=== PATIENT | male | born 1945 | race Caucasian/White ===

== ENCOUNTER 2016-12-28 08:30 | Inpatient (IN) ==
[2016-12-20 13:33] LABS: Basophils # (Auto) 0 K/mcL (0.0-0.3); Basophils % (Auto) 0.3 % (0.0-2.0); Eosinophils # (Auto) 0.2 K/mcL (0.0-0.7); Eosinophils % (Auto) 2.2 % (0.0-7.0); Granulocytes % (Auto) 70.8 % (38.0-78.0); Lymphocytes # (Auto) 1.4 K/mcL (1.5-4.8); Lymphocytes % (Auto) 18.7 % (15.5-49.0); Mean Cell Volume 88.2 fL (80.0-100.0); Mean Corpuscular HGB Conc 32.7 g/dL (31.0-36.0); Mean Corpuscular Hemoglobin 28.9 pg (26.0-34.0); Monocytes # (Auto) 0.6 K/mcL (0.1-0.9); Platelet Count 265 K/mcL (140-440); RBC 4.24 M/mcL (4.50-5.90); Red Cell Distribution Width 13.9 % (11.5-14.5)
[2016-12-20 13:33] LABS: Appearance,Urine CLEAR; Bilirubin,Urine NEG (NEG); Color,Urine YELLOW; Glucose,Urine (UA) NEGATIVE (NEG); Leukocyte Esterase,Urine NEG /uL (NEG); Nitrate,Urine NEG (NEG); Protein,Urine NEG (NEG); Specific Gravity,Urine 1.018 (1.000-1.035); Urine Blood NEG mg/dL (<0.03); Urobilinogen,Urine NEG (NEG)
[2016-12-20 13:45] LABS: Blood Urea Nitrogen 16 mg/dl (8-23)
[~2016-12-28 08:30] MED LIST: ACETAMINOPHEN 500 MG TABLET PO SCH; CELECOXIB 200 MG CAPSULE PO SCH; PREGABALIN 75 MG CAPSULE PO SCH; ceFAZolin 1 GM VIAL IV SCH; oxyCODONE 10 MG TAB.ER.12H PO SCH
[2016-12-28] MEDS ORDERED: KETOROLAC 30 MG, ROPIVACAINE HCL/PF 49.5 ML, EPINEPHrine 0.5 MG, 0.9 % SODIUM CHLORIDE ... IJ ONE (09:00)
[2016-12-28] MEDS ORDERED: GENTAMICIN SULFATE 800 MG/20 ML VIAL IR ONE (11:55)
[2016-12-28] MEDS ORDERED: GLYCOPYRROLATE 0.2 MG/ML VIAL IV ONE (12:30)
[2016-12-28] MEDS ORDERED: PROPOFOL 200 MG/20 ML VIAL IV ONE (12:30)
[2016-12-28] MEDS ORDERED: fentaNYL 250 MCG/5 ML VIAL IV ONE (12:30)
[2016-12-28] MEDS ORDERED: ONDANSETRON 4 MG/2 ML VIAL IV ONE (12:30)
[2016-12-28] MEDS ORDERED: MIDAZOLAM 5 MG/5 ML VIAL IV ONE (12:30)
[2016-12-28] MEDS ORDERED: ROPIVACAINE HCL/PF 30 ML VIAL IJ ONE (12:30)
[2016-12-28] MEDS ORDERED: LIDOCAINE HCL/PF 100 MG/5 ML SYRINGE IV ONE (12:30)
[2016-12-28] MEDS ORDERED: DEXAMETHASONE 10 MG/ML VIAL IV ONE (12:30)
[2016-12-28] MEDS ORDERED: ePHEDrine 50 MG/ML AMPUL IV ONE (12:30)
[2016-12-28] MEDS ORDERED: KETAMINE 100 MG/ML ML IV ONE (12:30)
[2016-12-28] MEDS ORDERED: TRANEXAMIC ACID 1,000 MG/10 ML VIAL IV ONE ×2 (12:30→14:02)
[2016-12-28] MEDS ORDERED: MEPERIDINE 25 MG/ML SYRINGE IV PRN (13:57)
[2016-12-28] MEDS ORDERED: BENZOCAINE/MENTHOL 1 LOZENGE PO PRN ×2 (13:57→14:02)
[2016-12-28] MEDS ORDERED: fentaNYL 100 MCG/2 ML VIAL IV PRN (13:57)
[2016-12-28] MEDS ORDERED: METOPROLOL TARTRATE 5 MG/5 ML VIAL IV PRN (13:57)
[2016-12-28] MEDS ORDERED: PROMETHAZINE 25 MG/ML VIAL IV PRN (13:57)
[2016-12-28] MEDS ORDERED: HYDROmorphone 2 MG/ML SYRINGE IV PRN (13:57)
[2016-12-28] MEDS ORDERED: METHOCARBAMOL 1,000 MG/10 ML VIAL IV PRN (13:57)
[2016-12-28] MEDS ORDERED: IPRATROPIUM/ALBUTEROL 3 ML AMPUL.NEB NEB PRN (13:57)
[2016-12-28] MEDS ORDERED: ePHEDrine 50 MG/ML AMPUL IV PRN (13:57)
[2016-12-28] MEDS ORDERED: LACTATED RINGERS 1,000 ML IV SCH (14:00)
[2016-12-28] MEDS ORDERED: POLYETHYLENE GLYCOL 3350 17 GM PACKET PO PRN (14:02)
[2016-12-28] MEDS ORDERED: FLEETS ADULT ENEMA PR PRN (14:02)
[2016-12-28] MEDS ORDERED: ACETAMINOPHEN 325 MG TABLET PO PRN (14:02)
[2016-12-28] MEDS ORDERED: BISACODYL 10 MG SUPP.RECT PR PRN (14:02)
[2016-12-28] MEDS ORDERED: MAGNESIUM HYDROXIDE 30 ML ORAL.SUSP PO PRN (14:02)
[2016-12-28] MEDS ORDERED: TEMAZEPAM 15 MG CAPSULE PO PRN (14:02)
[2016-12-28] MEDS ORDERED: SILDENAFIL CITRATE 25 MG PO PRN (14:07)
[2016-12-28] MEDS ORDERED: Betamethasone Dipropionate Cream TOPICAL PRN (14:07)
--- NOTE | 2016-12-28 14:09 | Brief Operative Note ---
Date of procedure: 12/28/16 Pre-op diagnosis: left knee severe djd Post-op diagnosis: same Procedure: left tka Grafts/Implants: Yes Anesthesia: GETA Complications: none Surgeon: Gaetano Muniz Peanut Grader: Enrike Martell Estimated blood loss (cc): 20 Tourniquet Time (Minutes): 45 Specimens Removed/Pathology: none sent Condition: stable Disposition: PACU
--- NOTE | 2016-12-28 14:29 | Operative Note ---
DATE OF OPERATION: 12/28/2016 PREOPERATIVE DIAGNOSIS: Left knee degenerative arthritis of all three compartments. POSTOPERATIVE DIAGNOSIS: Left knee degenerative arthritis of all three compartments. PROCEDURE: Left total knee arthroplasty using the [employer] robot. SURGEON: Gaetano Muniz MD. MONOMER RECOVERY OPERATOR: Enrike Martell PA-C. ANESTHESIA: General LMA. ESTIMATED BLOOD LOSS: About 20 mL. IMPLANTS: Size 7 femur, size 6 tibial baseplate with an 11 mm poly insert, a 39 mm patellar button. These were cemented components with a cruciate retained design. DESCRIPTION OF PROCEDURE: The patient was brought to the operating room and put to sleep with general LMA anesthesia. Once asleep, the patient had the left leg sterilely prepped and draped in the usual sterile fashion. Once done, we then confirmed the knee with a time out, x-rays and initials. All three confirmed the knee as the correct side. Once this was done, we exsanguinated the leg and inflated the tourniquet to 250 pounds of pressure. We made a midline incision, mid vastus approach and exposed the joint showing severe arthritis of the patellofemoral joint and even the medial and lateral joint lines. At this point we placed two pins above and below the knee and registered the knee, hip center of rotation. We placed two intra-articular pins, one on the femur, one on the tibia. We registered these points and registered 30 points on the femur, 30 points on the tibia and then balanced the knee, both at 15 degrees of flexion and 90 degrees. Once this was perfectly balanced and moved the implants to match the patient's anatomy and tracking of the patella, we then proceeded with bringing the robot in. We registered the robot. We then made our distal femoral cut and posterior chamfer. We then made our anterior chamfer, made our anterior and posterior cuts and removed the bony fragments. We then made our tibial cut after registering the tibia and the robot. At this point, we preserved the PCL, removed spurs posteriorly, removed the remnants of the meniscus, and then punched into place the tibial baseplate by setting the rotation with the robot. Once done, we then placed an 11 mm poly, tapped into place the femoral component and irrigated thoroughly. This had full range of motion, 0 degrees extension, 145 degrees of flexion, balanced with 1 degree of play within the knee. We irrigated thoroughly. We then prepared the patella. It measured a total thickness of 24 mm. This was cut to 13 mm and then placed a 39 mm patellar button. We irrigated thoroughly. This seemed to fit perfectly. We then cemented into place a size 6 tibial baseplate, size 7 femur. Excess cement was removed and an 11 mm poly insert and 39 mm component was placed. We irrigated thoroughly. We then deflated the tourniquet and repaired the mid vastus approach with a knotless suture for the capsule, oversewing with [id number] pattern in #1 Vicryl, closed the skin with 2-0 Vicryl and adhesive closure. We placed a sterile bandage without complication. RBH:[facility] Job ID: [id number] Doc ID: [id number] Gaetano Muniz MD
--- NOTE | 2016-12-28 15:22 | XRay Report ---
HISTORY: Reason for Exam:Post-Op Total Knee FINDINGS: There is a well positioned total knee prosthesis. No fracture is present and there are no abnormal soft tissue calcifications. A moderate amount of calcified plaque is present in the popliteal artery. IMPRESSION: Well-positioned left knee prosthesis Interpreted and Authenticated by: Harish Azul 12/28/16
[2016-12-28] MEDS: HYDROmorphone 2 MG/ML SYRINGE IV PRN ×2 (15:34→20:01)
[2016-12-28] MEDS: 0.45 % SODIUM CHLORIDE 1,000 ML IV SCH (15:35)
[2016-12-28] MEDS: HYDROcodone/APAP 10/325MG TABLET PO PRN (16:28)
[2016-12-28] MEDS: KETOROLAC 15 MG/ML VIAL IV SCH (16:29)
[2016-12-28] MEDS: ceFAZolin 1 GM VIAL IV SCH (20:25)
[2016-12-28] MEDS ORDERED: TAMSULOSIN 0.4 MG CAPSULE PO SCH (21:00)
[2016-12-28] MEDS ORDERED: FLUTICASONE PROPIONATE SPRAY.NAS NS SCH (21:00)
[2016-12-28] MEDS ORDERED: SIMVASTATIN 20 MG TABLET PO SCH (21:00)
[2016-12-28] MEDS ORDERED: SENNOSIDES 1 TABLET PO SCH (21:00)
[2016-12-28] MEDS: ONDANSETRON 4 MG/2 ML VIAL IV PRN (22:22)
[2016-12-28] MEDS: ASPIRIN 325 MG ENTERIC COATED TABLET PO SCH (22:24)
[2016-12-28] MEDS: DOCUSATE SODIUM 100 MG CAPSULE PO SCH (22:25)
[2016-12-28] MEDS: oxyCODONE 10 MG TAB.ER.12H PO SCH (22:25)
[2016-12-28] MEDS: 0.9 % SODIUM CHLORIDE 10 ML SYRINGE IV SCH (22:25)
[2016-12-29] MEDS: KETOROLAC 15 MG/ML VIAL IV SCH ×3 (00:20→13:26)
[2016-12-29] MEDS: 0.45 % SODIUM CHLORIDE 1,000 ML IV SCH ×2 (01:27→11:39)
[2016-12-29] MEDS: ceFAZolin 1 GM VIAL IV SCH (04:06)
[2016-12-29] MEDS: ONDANSETRON 4 MG/2 ML VIAL IV PRN ×3 (04:32→13:39)
[2016-12-29] MEDS: HYDROcodone/APAP 10/325MG TABLET PO PRN (04:40)
[2016-12-29] MEDS: 0.9 % SODIUM CHLORIDE 10 ML SYRINGE IV SCH ×2 (05:49→13:38)
[2016-12-29] MEDS ORDERED: MULTIVIT,THER IRON,CA,FA & MIN 1 TABLET PO SCH (09:00)
[2016-12-29] MEDS ORDERED: amLODIPine 10 MG TABLET PO SCH (09:00)
[2016-12-29] MEDS ORDERED: LOSARTAN 50 MG TABLET PO SCH (09:00)
[2016-12-29] MEDS: DOCUSATE SODIUM 100 MG CAPSULE PO SCH (09:24)
[2016-12-29] MEDS: ASPIRIN 325 MG ENTERIC COATED TABLET PO SCH (09:24)
[2016-12-29] MEDS: oxyCODONE 10 MG TAB.ER.12H PO SCH (09:24)
--- NOTE | 2016-12-29 10:16 | Discharge Summary ---
Ortho Discharge - TKA - Patient Instructions Diet: Regular Diet Activity: activity as tolerated, weight bearing as tolerated Total Knee Protocol: For Total Knee: Start ROM EDOUARD with stationary bike or rocking chair. Work on gaining full extension of knee. Posterior dislocation precautions provided. Hip abductor strengthening and gait training instructions provided. Apply Cryocuff as instructed. Dressing Care: Aquacel Ag - leave on for 5 days Patient Education: Total Knee Replacement (DC) Additional Instructions: Discharge Instructions: Do the exercises at home that physical therapy gave you. You are scheduled with [facility] on SaturdayDecember 31 @ 3:30pm Take your photo ID, insurance cards, and current medication list with you to your first physical therapy appointment. Take your prescription to [facility] any medication or equipment (such as walker, crutches, toilet riser or C.P.M.) Wear comfortable clothing for your physical therapy. Weight bearing as tolerated. If you have the Aquacel Ag dressing, leave in place for 7 days then remove. If dressing becomes soiled (turns black), remove and use gauze 4x4 dressing and silvasorb ointment and change daily. Keep incision clean and dry. If you have Dermabond (a dressing with a mesh-like appearance), leave open to air. You may start showering on post op day #2. The Dermabond dressing can get wet, do not scrub dressing. Pat dry. To avoid constipation while taking any narcotic pain medication, take an over the counter stool softener/laxative. Use your Cryocuff or ice packs as directed, on for 20 minutes at a time throughout the day. This and elevation will help with pain and swelling. Call your physician for fevers above 100.5 or pain not controlled by medication. Your prescriptions are with your discharge information. Some medications were electronically transmitted to your pharmacy of choice. - Follow Up Plan Follow Up Appointments: Gaetano Muniz MD [Physician] - 01/10/17 8:50 am Disposition: Home, Self-Care Prognosis: Good Rehab Potential: Good I certify that the patient requires SNF services: No Overall status at discharge: patient is progressing back to baseline - Orders For Discharge Prescriptions: Aspirin [Ecotrin] 325 mg PO BID #28 tab.ec HYDROcodone/APAP 10/325MG [[place] 10/325Mg] 1 - 2 tab PO Q4H PRN #60 tablet PRN Reason: Pain Ondansetron [Zofran] 4 mg PO Q4HP PRN #10 vial PRN Reason: Nausea And Vomiting Additional Discharge Orders: Physical Therapy at Discharge - TKA Location: Determined By Patient Toilet Riser Discharge Order Location: Determined By Patient Walker Location: Determined By Patient
== END 2016-12-29 14:10 | disposition home or self-care (01) | DRG 470 ==
LOC: MEDSUR 08:30
PROVIDERS: ADMIT Orthopaedic Surgery; ATTEND Orthopaedic Surgery

== ENCOUNTER 2020-07-20 16:59 | Inpatient (IN) ==
--- NOTE | 2020-07-20 17:14 | Emergency Department Note ---
Neuro HPI General Chief Complaint: Stroke Symptoms Stated Complaint: stroke symptoms, left sided weakness Time Seen by Provider: 07/20/20 17:09 Source: patient Mode of arrival: ambulatory Limitations: no limitations History of Present Illness HPI Narrative: Narrative: 75-year-old male returns to the ER after having TIA type symptoms at home. He had a 6 mm lacunar infarct diagnosed this morning on MRI stroke protocol but he had an NIH of 0 with an ABCD 2 score of 3 so he did not meet hospital criteria. He was already on a statin and aspirin- He took aspirin when he got home this afternoon. He was feeling better when he left [place] approximately 1630 he got up from his nap had a bowl of tapioca pudding and suddenly was not able to move his arm again and could not speak. This episode lasted about 10 minutes or so and by the time EMS got there it was resolving. At this time he again has no symptoms but EMS called me and I advised him to bring him in for reevaluation. At this time he is able to give me reasonable history and he remembers all the events. He did not fall or have any traumatic event. He is afebrile and denies any recent illness. He is having no trouble breathing. He has regained the use of all 4 of his appendages and is not complaining of any current deficit Related Data Home Medications Medication Instructions Recorded Confirmed amlodipine 10 mg PO DAILY 12/20/16 07/01/20 betamethasone dipropionate 1 applic TOPICAL DAILYP PRN 12/20/16 07/01/20 losartan 100 mg PO DAILY 12/20/16 07/01/20 sildenafil 25 mg PO PRN PRN 12/20/16 07/01/20 simvastatin 20 mg PO HS 12/20/16 07/01/20 tamsulosin 0.4 mg PO HS 12/20/16 07/01/20 Previous Rx's Medication Instructions Recorded omeprazole 20 mg capsule,delayed 20 mg PO QAM #30 cap 05/09/18 release cyclobenzaprine 10 mg tablet See Rx Instructions PO .COMPLEX 12/25/19 PRN #30 tab aspirin 325 mg PO QDAY #30 tab 07/20/20 Allergies Allergy/AdvReac Type Severity Reaction Status Date / Time No Known Drug Allergies Allergy Verified 07/20/20 17:01 Review of Systems ROS ROS Narrative: Narrative: All systems ED: reviewed and negative except as stated. [facility] Narrative Patient History Narrative: Narrative: Medical/Surgical/Family History All Active Problems (Updated 07/20/20 @ 17:14 by Eamon Villareal MD) Acute lacunar infarction (Acute) Hematuria (Acute) TMJ (sprain of temporomandibular joint) (Acute) Olecranon bursitis of left elbow (Acute) Chronic back pain (Acute) Neck pain (Acute) Cellulitis of foot, right (Acute) LAP-BAND surgery status (Acute) Hyperlipidemia (Acute) Hypertension (Acute) Hiccups (Acute) Medical History Hematuria (Acute) Olecranon bursitis of left elbow (Acute) TMJ (sprain of temporomandibular joint) (Acute) Social History Smoking Status: Never smoker Alcohol Intake Frequency: a few times a month Substance Use: does not use Exam Narrative Narrative: Narrative: I did a quick neuro exam as he was being admitted almost immediately after he was put in bed. His blood pressure is elevated at 189Systolic. He is normocephalic atraumatic. Conjunctive are clear sclerae white nonicteric. Nasal discharge or congestion. Oropharynx pink and moist. Neck is supple without lymphadenopathy thyromegaly or carotid bruit. Heart is regular rate and rhythm no murmur appreciated. Lungs clear to auscultation bilaterally without wheezes rales rhonchi or respiratory distress. Abdomen is soft nontender nondistended. No peritoneal signs or guarding. No pedal edema. +2 radial pulse. He is alert oriented able to answer questions appropriately.He is at baseline mentation and is a reasonable historian. I do not see any focal deficits. Face is symmetrical tongue is midline cranial nerves II through XII are grossly intact. Bilateral hand neurosurgery spine physician strength are normal. Shoulder strength is normal bilateral as well as hip. He can lift his great toes bilaterally normally and I do not see any ataxia dysarthria or tremor General Limitations: no limitations Course Vital Signs Vital signs: Vital Signs Pulse Rate 88 07/20/20 17:05 Respiratory Rate 22 07/20/20 17:05 Blood Pressure 189/109 07/20/20 17:05 Pulse Oximetry (%) 99 07/20/20 17:05 Pulse Rate 83 07/20/20 17:46 Respiratory Rate 16 07/20/20 17:46 Blood Pressure 140/82 07/20/20 17:46 Pulse Oximetry (%) 96 07/20/20 17:46 MDM MDM Narrative Medical decision making narrative: Narrative:So return to the ER for another TIA- Concern for worsening stroke. Sent back to the CT scanner. We will get telestroke involved and likely send him north to [place] for further care and monitoring CT scan of the head was negative for new stroke- Again. I discussed the findings with Dr. Danielson, Telestroke provider from [place]. He advised me That this was a fluctuating CVAAnd that these were difficult to treat. He recommended to do dual antiplatelet therapy With aspirin and Plavix and continue Statin. Advised me to not treat the blood pressure unless it got over 220 system- Permissive hypertension. The regimen he recommends for dual antiplatelet therapy is 150 mg of Plavix today and then go to 75 mg a day for the next 2 weeks. And then reevaluate. Need echocardiogram. Repeating EKG to make sure he is not in atrial fibrillation. He is not diabetic I did discuss the situation with Dr. Hunt, Our hospitalist. He agreed to accept the patient for further care and evaluation in the hospital. Some labs were still pending at the time of admission Lab Data Result diagrams: 07/20/20 17:30 07/20/20 17:30 Labs: Lab Results 07/20/20 07/20/20 07/20/20 Range/Units 17:30 17:30 17:30 WBC 7.9 (4.5-11.0) K/mcL RBC 4.50 (4.50-5.90) M/mcL Hgb 12.9 L (13.5-16.5) g/dL Hct 40.7 L (41.0-55.0) % MCV 90.4 (80.0-100.0) fL MCH 28.7 (26.0-34.0) pg MCHC 31.7 (31.0-36.0) g/dL RDW 14.4 (11.5-14.5) % Plt Count 247 (140-440) K/mcL MPV 10.8 H (7.4-10.4) fL Neut % (Auto) 74.6 (38.0-78.0) % Lymph % (Auto) 15.9 (15.0-49.0) % [place] % (Auto) 8.2 (1.0-12.0) % Eos % (Auto) 0.9 (0.0-7.0) % Baso % (Auto) 0.4 (0.0-2.0) % Lymph # (Auto) 1.25 L (1.50-4.80) K/mcL [place] # (Auto) 0.65 (0.10-0.90) K/mcL Eos # (Auto) 0.07 (0.00-0.70) K/mcL Baso # (Auto) 0.03 (0.00-0.20) K/mcL Absolute Neutrophils 5.88 (1.80-8.00) K/mcL POC PT 13.3 (11.9-14.5) sec POC INR 1.1 (0.8-1.2) POC Creatinine 1.1 (0.6-1.2) mg/dL Discharge Plan Patient/Caregiver Discharge Instructions Pt seen by MANAGER [facility]/PA only: No Clinical Impression: Acute lacunar infarction Patient Disposition: Xfer As Inpt ([facility]) Condition: Fair Follow up with: David Ruiz MD [Primary Care Provider] - Prescriptions: No Action omeprazole 20 mg capsule,delayed release(DR/EC) 20 mg PO QAM Qty: 30 RF: 0 cyclobenzaprine 10 mg tablet See Rx Instructions PO .COMPLEX PRN (Reason: muscle spasm) Qty: 30 RF: 0 losartan 50 MG tablet 100 mg PO DAILY RF: 0 sildenafil 25 MG tablet 25 mg PO PRN PRN (Reason: E.D.) RF: 0 tamsulosin 0.4 MG capsule 0.4 mg PO HS RF: 0 amlodipine 10 MG tablet 10 mg PO DAILY RF: 0 simvastatin 20 MG tablet 20 mg PO HS RF: 0 betamethasone dipropionate 15 GM cream 1 applic TOPICAL DAILYP PRN (Reason: Rash) RF: 0 aspirin 325 mg tablet 325 mg PO QDAY Qty: 30 RF: 0
[2020-07-20] MEDS ORDERED: niCARdipine 25 MG in 0.9 % SODIUM CHLORIDE 240 ML IV SCH (17:15)
--- NOTE | 2020-07-20 17:18 | Cat Scan Report ---
CLINICAL INFORMATION: COMPARISON: None. TECHNIQUE: 2.5 mm helical slices were obtained in the skull base to vertex. Following reconstruction, axial reformatted images were reviewed at bone and parenchymal windows. The exam was performed using radiation dose optimization techniques including, but not limited to, automated exposure control, adjustment of the mA and/or kV according to patient size and use of iterative reconstruction technique. FINDINGS: The ventricles, sulci, fissures, and cisterns are symmetrically enlarged compatible with mild age-related atrophy. No extra-axial fluid collections are identified. Mild chronic ischemic changes in the cerebral white matter are typical for age. A 5 mm remote lacunar infarct in the right joao appreciated. There is no evidence of hemorrhage, mass effect, or edema. Bone windows show no osseous abnormality. IMPRESSION: Mild atrophy with chronic ischemic changes in the cerebral white matter - expected for age. 5 mm remote lacunar infarct right joao No intracerebral hemorrhage, edema or other acute finding. No change from exam earlier today . Interpreted and Authenticated by: Navjot Mullen 07/20/20
[2020-07-20 17:34] LABS: POC Creatinine 1.1 mg/dL (0.6-1.2); POC INR 1.1 (0.8-1.2); POC Pro Time 13.3 sec (11.9-14.5)
[2020-07-20] MEDS ORDERED: CLOPIDOGREL 75 MG TABLET PO ONE ×2 (17:36→17:37)
[2020-07-20] MEDS ORDERED: 0.9 % SODIUM CHLORIDE 1,000 ML IV SCH ×2 (17:45→18:54)
--- NOTE | 2020-07-20 17:57 | Internal Med History&Physical ---
HPI History of Present Illness Patient information: Note initiated : 07/20/20 at 5:50 pm Service Date, if different from initiated Date: [] Patient: Lamont Murguia a 75 y/o M admitted on for stroke symptoms, left sided weakness. Chief Complaint: [] History of present illness: Mr. Murguia is a 75 year old M Presents the ED after strokelike symptoms. Patient first had symptoms this morning when he was getting ready for work he had had taken a shower had breakfast and was sitting down to put on his shoe and was not able. He reported weakness in his left leg and left hand arm he also had some numbness. Symptoms resolved by the time EMS arrived. He went to the ED and had a work-up which included MRI which revealed a 6 mm ischemic lacunar infarct in the posterior limb of the right internal capsule there is a remote 5 mm lacunar infarct in the right joao noted in a 3 mm remote infarct in the right cerebellar vermis. The symptoms had resolved patient was doing well in the ED and had a CTA which was unremarkable patient was prescribed aspirin he was already on a statin and set up for an outpatient echo. Patient went home and was doing well took the full dose aspirin as prescribed took a nap and woke up and when he was out moving around he eventually went and sat down on the couch and tried to use the remote to turn on [employer] when he noticed his left hand would not work very well noticed weakness in the leg he had some numbness as well and he noticed slurring. Symptoms essentially resolved by the time EMS arrived. In the ED he was reevaluated had a repeat CT brain showed no changes. He had a NIH score of 0 in the ED. neurologist from [place] Dr. Danielson was called and he recommended dual antiplatelet therapy for this fluctuating stroke. Allow permissive hypertension and obtain the complete work-up including echocardiogr am. She denies having any strokes in the past that he is aware of. Denies any recent illnesses. No pains or complaints. No headache. Review of Systems: Pertinent positives as above. Denies head ache/fever/chills/nausea/vomiting/chest or abdominal pain/cough/dyspnea/diarrhea. Remaining 10 point review of systems unremarkable PFSH PFSH All Active Problems (Updated 07/20/20 @ 17:14 by Eamon Villareal MD) Acute lacunar infarction (Acute) Hematuria (Acute) TMJ (sprain of temporomandibular joint) (Acute) Olecranon bursitis of left elbow (Acute) Chronic back pain (Acute) Neck pain (Acute) Cellulitis of foot, right (Acute) LAP-BAND surgery status (Acute) Hyperlipidemia (Acute) Hypertension (Acute) Hiccups (Acute) Medical History Hematuria (Acute) Olecranon bursitis of left elbow (Acute) TMJ (sprain of temporomandibular joint) (Acute) Social History (Updated 07/20/20 @ 17:54 by Peterson Hunt DO) smoking status: Never smoker alcohol intake frequency: a few times a month substance use type: does not use additional history: Past surgical history includes tonsillectomy bilateral knee surgeries hernia repair Family history mother is healthy at 96 and father at 62 of a brain cancer MEDS/ALLERGIES Home Medications and Allergies Home Medications Medication Instructions Recorded Confirmed Type amlodipine 10 mg PO DAILY 12/20/16 07/01/20 History betamethasone dipropionate 1 applic TOPICAL DAILYP PRN 12/20/16 07/01/20 History losartan 100 mg PO DAILY 12/20/16 07/01/20 History sildenafil 25 mg PO PRN PRN 12/20/16 07/01/20 History simvastatin 20 mg PO HS 12/20/16 07/01/20 History tamsulosin 0.4 mg PO HS 12/20/16 07/01/20 History omeprazole 20 mg capsule,delayed 20 mg PO QAM #30 cap 05/09/18 07/01/20 Rx release cyclobenzaprine 10 mg tablet See Rx Instructions PO .COMPLEX 12/25/19 07/01/20 Rx PRN #30 tab aspirin 325 mg PO QDAY #30 tab 07/20/20 Rx Allergies Allergy/AdvReac Type Severity Reaction Status Date / Time No Known Drug Allergies Allergy Verified 07/20/20 17:01 EXAM Constitutional Vitals: Pulse Resp BP Pulse Ox 83 16 140/82 96 07/20/20 17:46 07/20/20 17:46 07/20/20 17:46 07/20/20 17:46 Exam: General: Alert, Awake, No acute Distress Eyes/N/T: EOMI, PERRL, Head/Neck: neck supple, normocephalic atraumatic CV: RRR, No murmurs, normal s1/s2 Pulm: Clear b/l, no wheezing/rhonchi/rales Abd: soft, nontender, +BS x4 Ext: no clubbing/cyanosis/edema Neuro: Alert, no focal deficits, moves all extremities, CN 2-12 grossly intact, symmetrical strength b/l upper/lower, sensations intact b/l upper/lower. No pronator drift, no aphasia, symmetrical face. Skin: warm/dry DATA Data Completed and Pending Labs: Labs from last 24 hours 07/20/20 07/20/20 07/20/20 17:30 17:30 17:30 WBC RBC Hgb Hct MCV MCH MCHC RDW Plt Count MPV Neut % (Auto) POC PT 13.3 PT Pending POC INR 1.1 INR Pending APTT Pending Sodium Pending Potassium Pending Chloride Pending Carbon Dioxide Pending Anion Gap Pending BUN Pending Creatinine Pending POC Creatinine 1.1 GFR Calculation Pending Glucose Pending Calcium Pending Total Bilirubin Pending AST Pending ALT Pending Alkaline Phosphatase Pending Troponin T Pending Total Protein Pending Albumin Pending Globulin Pending Albumin/Globulin Ratio Pending 07/20/20 17:30 WBC Pending RBC Pending Hgb Pending Hct Pending MCV Pending MCH Pending MCHC Pending RDW Pending Plt Count Pending MPV Pending Neut % (Auto) Pending POC PT PT POC INR INR APTT Sodium Potassium Chloride Carbon Dioxide Anion Gap BUN Creatinine POC Creatinine GFR Calculation Glucose Calcium Total Bilirubin AST ALT Alkaline Phosphatase Troponin T Total Protein Albumin Globulin Albumin/Globulin Ratio A/P Narrative A/P Narrative: A: *Acute right hemispheric fluctuating CVA w/ left side weakness, since resolved: -Case discussed with stroke neurologist who recommended dual antiplatelet therapy for fluctuating stroke *h/o HTN/HLD *GERD: *BPH: * P: -IVF -Permissive hypertension -High-dose statin -DAPT -Neuro checks -Echo - -pt/ot -ppx: Lovenox DNR Time Spent With Patient Time: Total time spent is greater than 50% in coordination of care (as nas schaeffer) at patient's floor/unit and/or counseling patient: QUALITY Stroke Symptom Onset Unknown: No
[2020-07-20 18:13] LABS: Basophils # (Auto) 0.03 K/mcL (0.00-0.20); Basophils % (Auto) 0.4 % (0.0-2.0); Eosinophils # (Auto) 0.07 K/mcL (0.00-0.70); Eosinophils % (Auto) 0.9 % (0.0-7.0); Hematocrit 40.7 % (41.0-55.0); Hemoglobin 12.9 g/dL (13.5-16.5); Lymphocytes # (Auto) 1.25 K/mcL (1.50-4.80); Lymphocytes % (Auto) 15.9 % (15.0-49.0); Mean Cell Volume 90.4 fL (80.0-100.0); Mean Corpuscular HGB Conc 31.7 g/dL (31.0-36.0); Mean Platelet Volume 10.8 fL (7.4-10.4); Monocytes # (Auto) 0.65 K/mcL (0.10-0.90); Monocytes % (Auto) 8.2 % (1.0-12.0); Neutrophils % (Auto) 74.6 % (38.0-78.0); Platelet Count 247 K/mcL (140-440); Red Cell Distribution Width 14.4 % (11.5-14.5); WBC 7.9 K/mcL (4.5-11.0)
[2020-07-20 18:37] LABS: ALT/SGPT 15 U/L (<40); AST/SGOT 14 U/L (<40); Albumin 4.1 gm/dL (3.2-5.2); Albumin/Globulin Ratio 1.4 (1.0-2.3); Alkaline Phosphatase 57 U/L (39-117); Bilirubin,Total 0.8 mg/dL (0.1-1.0); Blood Urea Nitrogen 24 mg/dL (8-23); Calcium 9.7 mg/dL (8.6-10.4); Carbon Dioxide 24 mmol/L (22-30); Chloride 101 mmol/L (96-108); Glomerular Filtration Rate 72; Glucose 123 mg/dL (70-105)
[2020-07-20 18:42] LABS: Partial Thromboplastin Time 31.3 sec (20.0-37.0); Prothrombin Time 14.1 sec (11.9-14.5)
[2020-07-20] MEDS ORDERED: SENNOSIDES 1 TABLET PO PRN (18:54)
[2020-07-20] MEDS ORDERED: ONDANSETRON 4 MG/2 ML VIAL IV PRN (18:54)
[2020-07-20] MEDS ORDERED: MAGNESIUM SULFATE 2 GM/50 ML BAG IV PRN (18:54)
[2020-07-20] MEDS ORDERED: POTASSIUM CHLORIDE 20 MEQ TABLET PO PRN ×2 (18:54)
[2020-07-20] MEDS ORDERED: POTASSIUM CHLORIDE 40 MEQ in DEXTROSE 5% IN WATER 500 ML IV PRN (18:54)
[2020-07-20] MEDS ORDERED: LABETALOL 5 MG/ML ML IV PRN (18:54)
[2020-07-20] MEDS: 0.9 % SODIUM CHLORIDE 1,000 ML IV SCH ×2 (19:40→20:11)
[2020-07-20] MEDS: TAMSULOSIN 0.4 MG CAPSULE PO SCH (21:31)
[2020-07-20] MEDS: ATORVASTATIN 40 MG TABLET PO SCH (21:31)
[2020-07-20] MEDS: DOCUSATE SODIUM 100 MG CAPSULE PO SCH (21:31)
[2020-07-20] MEDS: 0.9 % SODIUM CHLORIDE 10 ML SYRINGE IV SCH (22:02)
[2020-07-20 23:31] LABS: Appearance,Urine CLEAR (Clear); Bilirubin,Urine Negative (Negative); Color,Urine YELLOW; Culture Indicated,Urine No; Glucose,Urine (UA) Negative (Negative); Ketones,Urine Negative (Negative); Leukocyte Esterase,Urine Negative /ug (Negative); Nitrate,Urine Negative (Negative); Protein,Urine Negative (Negative); Specific Gravity,Urine 1.027 (1.000-1.035); Urine Blood Negative (Negative); Urobilinogen,Urine Negative
[2020-07-21] MEDS: ACETAMINOPHEN 325 MG TABLET PO PRN ×2 (02:59→20:40)
[2020-07-21] MEDS: 0.9 % SODIUM CHLORIDE 10 ML SYRINGE IV SCH ×3 (04:53→22:45)
[2020-07-21 06:46] LABS: ALT/SGPT 12 U/L (<40); AST/SGOT 13 U/L (<40); Albumin 3.6 gm/dL (3.2-5.2); Albumin/Globulin Ratio 1.4 (1.0-2.3); Alkaline Phosphatase 50 U/L (39-117); Bilirubin,Direct < 0.2 mg/dL (<0.3); Bilirubin,Total 0.9 mg/dL (0.1-1.0); Blood Urea Nitrogen 18 mg/dL (8-23); Calcium 8.7 mg/dL (8.6-10.4); Carbon Dioxide 23 mmol/L (22-30); Chloride 106 mmol/L (96-108); Globulin 2.6 gm/dL (2.2-3.7); Glomerular Filtration Rate 86; Glucose 91 mg/dL (70-105); Lactate Dehydrogenase 174 U/L (135-225); Phosphorous 2.9 mg/dL (2.5-4.5); Triglycerides 59 mg/dL (<150); Uric Acid 5.1 mg/dL (2.5-8.0)
--- NOTE | 2020-07-21 07:27 | Internal Med Progress Note ---
SUBJECTIVE Subjective Patient information: Note initiated : 07/21/20 at 7:24 am Service Date, if different from initiated Date: [] Patient: Lamont Murguia a 75 y/o M admitted on 07/20/20 for stroke symptoms, left sided weakness. Chief Complaint: [] Interval history: History of present illness: Mr. Murguia is a 75 year old M Presents the ED after strokelike symptoms. Patient first had symptoms this morning when he was getting ready for work he had had taken a shower had breakfast and was sitting down to put on his shoe and was not able. He reported weakness in his left leg and left hand arm he also had some numbness. Symptoms resolved by the time EMS arrived. He went to the ED and had a work-up which included MRI which revealed a 6 mm ischemic lacunar infarct in the posterior limb of the right internal capsule there is a remote 5 mm lacunar infarct in the right joao noted in a 3 mm remote infarct in the right cerebellar vermis. The symptoms had resolved patient was doing well in the ED and had a CTA which was unremarkable patient was prescribed aspirin he was already on a statin and set up for an outpatient echo. Patient went home and was doing well took the full dose aspirin as prescribed took a nap and woke up and when he was out moving around he eventually went and sat down on the couch and tried to use the remote to turn on [employer] when he noticed his left hand would not work very well noticed weakness in the leg he had some numbness as well and he noticed slurring. Symptoms essentially resolved by the time EMS arrived. In the ED he was reevaluated had a repeat CT brain showed no changes. He had a NIH score of 0 in the ED. neurologist from [place] Dr. Danielson was called and he recommended dual antiplatelet therapy for this fluctuating stroke. Allow permissive hypertension and obtain the complete work-up including echocardiogram. She denies having any strokes in the past that he is aware of. Denies any re cent illnesses. No pains or complaints. No headache. / Poor sleep. No strokelike symptoms. Will gradually start bringing down as needed blood pressure medication parameters after first 24hrs. still holding home bp meds. Pending echocardiogram results. Review of Systems: denies headache/fever/chills/nausea/vomiting/chest or abdominal pain/cough/dyspnea/diarrhea. Otherwise see above. Constitutional Vitals: Vital Signs Temp Pulse Resp BP Pulse Ox 97.1 F 70 15 154/86 94 07/21/20 03:08 07/21/20 00:00 07/21/20 04:01 07/21/20 04:01 07/21/20 04:01 Period Temp Pulse Resp BP Sys/Christy Pulse Ox Last 24 Hr 97.1 F-98.2 F 64-88 11-24 138-189/75-109 94-99 Intake and Output 07/20/20 07/21/20 07/21/20 21:59 05:59 13:59 Intake Total 1000 Output Total 625 500 Balance 1000 -625 -500 Weight 99.745 kg 99.019 kg Intake & Output: Intake & Output 07/20/20 07/21/20 07/21/20 21:59 05:59 13:59 Intake Total 1000 Output Total 625 500 Balance 1000 -625 -500 Weight 99.745 kg 99.019 kg Intake: IV 1000 Sodium Chloride 0.9% 1,000 ml @ 1000 500 mls/hr IV .Q2H DOMENICA Rx#: [id number] Output: Void Amount 625 500 Other: Urine Appearance Clear Clear Urine Color Straw Pale Exam: General: Alert, Awake, No acute Distress Eyes/N/T: EOMI, Head/Neck: neck supple, CV: RRR, No murmurs, Pulm: Clear b/l, no wheezing/rhonchi/rales Abd: soft, nontender, +BS x4 Ext: no clubbing/cyanosis/edema Neuro: Alert, no focal deficits, moves all extremities, Skin: warm/dry OBJ DATA Labs CBC & Chem 7: 07/20/20 17:30 07/21/20 05:05 Labs: Abnormal Lab Results 07/20/20 07/20/20 17:30 17:30 Hgb 12.9 L Hct 40.7 L MPV 10.8 H Lymph # (Auto) 1.25 L BUN 24 H Glucose 123 H Meds: Medications Acetaminophen (Tylenol) 650 mg PO Q6HP PRN PRN Reason: PAIN/FEVER > 101 Last Admin: 07/21/20 02:59 Dose: 650 mg Documented by: Aspirin (Aspirin) 81 mg CHEWED DAILY [facility] Atorvastatin Calcium (Lipitor) 80 mg PO HS [facility] Last Admin: 07/20/20 21:31 Dose: Not Given Documented by: Clopidogrel Bisulfate (Plavix) 75 mg PO DAILY [facility] Docusate Sodium (Colace) 100 mg PO BID [facility] Last Admin: 07/20/20 21:31 Dose: Not Given Documented by: Enoxaparin Sodium (Lovenox) 40 mg SQ DAILY [facility] Potassium Chloride 40 meq/ (Dextrose) 520 mls @ 130 mls/hr IV UD PRN PRN Reason: Potassium < 3 Magnesium Sulfate (Magnesium Sulfate) 2 gm in 50 mls @ 50 mls/hr IV UD PRN PRN Reason: Magnesium </= 1.6 Labetalol HCl (Trandate) 10 mg IV Q2H PRN PRN Reason: sbp>220 Ondansetron HCl (Zofran) 4 mg IV Q4HP PRN PRN Reason: Nausea And Vomiting Pantoprazole Sodium (Protonix) 40 mg PO QAMAC [facility] Pneumococcal Polyvalent Vaccine (Pneumovax 23) 0.5 ml IM .ONCE ONE Stop: 07/22/20 10:01 Potassium Chloride (Kdur) 40 meq PO UD PRN PRN Reason: Potssium is 3-3.5 Potassium Chloride (Kdur) 40 meq PO UD PRN PRN Reason: Potassium < 3 Senna (Senokot) 2 tab PO DAILYP PRN PRN Reason: Constipation Sodium Chloride (Saline Flush) 10 ml IV Q8 [facility] Last Admin: 07/21/20 04:53 Dose: Not Given Documented by: Tamsulosin HCl (Flomax) 0.4 mg PO HS [facility] Last Admin: 07/20/20 21:31 Dose: Not Given Documented by: A/P Narrative A/P Narrative: A: *Acute right hemispheric fluctuating CVA w/ left side weakness, since resolved: -Case discussed with stroke neurologist who recommended dual antiplatelet therapy for fluctuating stroke *h/o HTN/HLD: home norvasc/losartan *GERD: *BPH: * P: -IVF stop -Permissive hypertension first 24-48hrs, -High-dose statin -DAPT -Neuro checks -Echo pending - -pt/ot -ppx: Lovenox DNR Time Spent With Patient Time: Total time spent is greater than 50% in coordination of care (as do cumented) at patient's floor/unit and/or counseling patient: QUALITY Stroke Onset of Symptoms Date: 07/20/20 Onset of Symptoms Time: 16:45 Symptom Onset Unknown: Yes VTE Deep Vein Thrombosis/Pulmonary Embolism Present on Admission: No
[2020-07-21] MEDS: PANTOPRAZOLE 40 MG PACKET PO SCH (07:53)
[2020-07-21] MEDS ORDERED: LABETALOL 5 MG/ML ML IV PRN ×2 (08:24→11:57)
[2020-07-21] MEDS: DOCUSATE SODIUM 100 MG CAPSULE PO SCH ×2 (09:05→20:40)
[2020-07-21] MEDS: ASPIRIN 81 MG TAB.CHEW CHEWED SCH (09:05)
[2020-07-21] MEDS: ENOXAPARIN 40 MG/0.4 ML SYRINGE SQ SCH (09:06)
[2020-07-21] MEDS: CLOPIDOGREL 75 MG TABLET PO SCH (09:06)
[2020-07-21] MEDS: ATORVASTATIN 40 MG TABLET PO SCH (20:40)
[2020-07-21] MEDS: TAMSULOSIN 0.4 MG CAPSULE PO SCH (20:40)
[2020-07-21] MEDS ORDERED: MELATONIN 3 MG TABLET PO SCH (21:00)
[2020-07-22] MEDS: 0.9 % SODIUM CHLORIDE 10 ML SYRINGE IV SCH ×2 (04:30→15:05)
[2020-07-22] MEDS: PANTOPRAZOLE 40 MG PACKET PO SCH (07:14)
--- NOTE | 2020-07-22 09:10 | Cat Scan Report ---
CLINICAL INFORMATION: Left-sided weakness. Possible intracranial hemorrhage COMPARISON: Head CT two days prior 07/20/2020. TECHNIQUE: 2.5 mm helical slices were obtained in the skull base to vertex. Following reconstruction, axial reformatted images were reviewed at bone and parenchymal windows. The exam was performed using radiation dose optimization techniques including, but not limited to, automated exposure control, adjustment of the mA and/or kV according to patient size and use of iterative reconstruction technique. FINDINGS: The ventricles, sulci, fissures, and cisterns are symmetrically enlarged compatible with mild age-related atrophy. No extra-axial fluid collections are identified. Mild chronic ischemic changes in the cerebral white matter are typical for age. A 5 mm remote lacunar infarct in the right joao appreciated. There is no evidence of hemorrhage, mass effect, or edema. Bone windows show no osseous abnormality. IMPRESSION: Mild atrophy with chronic ischemic changes in the cerebral white matter - expected for age. 5 mm remote lacunar infarct right joao No intracerebral hemorrhage, edema or other acute finding. No change from prior exam Interpreted and Authenticated by: Navjot Mullen 07/22/20
[2020-07-22] MEDS: CLOPIDOGREL 75 MG TABLET PO SCH (09:31)
[2020-07-22] MEDS: DOCUSATE SODIUM 100 MG CAPSULE PO SCH (09:31)
[2020-07-22] MEDS: ASPIRIN 81 MG TAB.CHEW CHEWED SCH (09:31)
[2020-07-22] MEDS: ENOXAPARIN 40 MG/0.4 ML SYRINGE SQ SCH (09:31)
[2020-07-22] MEDS ORDERED: PNEUMOCOCCAL 23-VAL P-SAC VAC 0.5 ML SYRINGE IM ONE (10:00)
[2020-07-22] MEDS ORDERED: BETAMETHASONE DIPR CRM 0.05% 15GM TUBE TOPICAL PRN (12:12)
[2020-07-22] MEDS ORDERED: CYCLOBENZAPRINE 10 MG TABLET PO PRN (12:16)
[2020-07-22] MEDS ORDERED: amLODIPine 10 MG TABLET PO ONE (14:44)
[2020-07-22] MEDS ORDERED: LOSARTAN 50 MG TABLET PO ONE (14:45)
--- NOTE | 2020-07-22 15:18 | Discharge Summary ---
Discharge Provider Provider Patient information: Note initiated : 07/22/20 at 3:15 pm Service Date, if different from initiated Date: [] Patient: Lamont Murguia a 75 y/o M admitted on 07/20/20 for stroke symptoms, left sided weakness. 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 Continue aspirin/Plavix/high-dose statin. -Case discussed with stroke neurologist who recommended dual antiplatelet therapy for fluctuating stroke -carotids aa's patent -Recommend outpatient neurology follow-up and discharge *h/o HTN/HLD: home norvasc/losartan. Systolics around 130 *GERD: PPI *BPH: Continue tamsulosin Brief hospital course Mr. Murguia is a 75 year old M Presents the ED after strokelike symptoms. Patient first had symptoms this morning when he was getting ready for work he had had taken a shower had breakfast and was sitting down to put on his shoe and was not able. He reported weakness in his left leg and left hand arm he also had some numbness. Symptoms resolved by the time EMS arrived. He went to the ED and had a work-up which included MRI which revealed a 6 mm ischemic lacunar infarct in the posterior limb of the right internal capsule there is a remote 5 mm lacunar infarct in the right joao noted in a 3 mm remote infarct in the right cerebellar vermis. The symptoms had resolved patient was doing well in the ED and had a CTA which was unremarkable patient was prescribed aspirin he was already on a statin and set up for an outpatient echo. Patient went home and was doing well took the full dose aspirin as prescribed took a nap and woke up and when he was out moving around he eventually went and sat down on the couch and tried to use the remote to turn on [employer] when he noticed his left hand would not work very well noticed weakness in the leg he had some numbness as well and he noticed slurring. Symptoms essentially resolved by the time EMS arrived. In the ED he was reevaluated had a repeat CT brain showed no changes. He had a NIH score of 0 in the ED. neurologist from [place] Dr. Danileson was called and he recommended dual antiplatelet therapy for this fluctuating stroke. Allow permissive hypertension and obtain the complete work-up including echocardiogram. She denies having any strokes in the past that he is aware of. Denies any recent illnesses. No pains or complaints. No headache. 07/21 Poor sleep. No strokelike symptoms. Will gradually start bringing down as needed blood pressure medication parameters after first 24hrs. still holding home bp meds. Pending echocardiogram results. 07/22-patient doing clinically better. Started on home medication. Continuing aspirin/Plavix/high-dose statin. Recommend follow-up with neurology on discharge in 7 to 10 days. Date of admission: 07/20/20 18:48 Discharge date: 07/22/20 Primary care physician: David Ruiz MD Consults: 07/20/20 Consult to Physician [CONS] Stat Comment: Consulting Provider: Peterson Hunt Reason For Exam: Physician to Consult Consult to Physician [CONS] Stat Comment: Consulting Provider: Juvenal Ojeda Reason For Exam: Physician to Consult Discharge Meds Discharge Medications Home Medications amlodipine 10 mg PO DAILY 12/20/16 [History Confirmed 07/20/20 Last Taken 07/20/20] betamethasone dipropionate 1 applic TOPICAL PRN PRN 12/20/16 [History Confirmed 07/20/20 Last Taken Unknown] losartan 100 mg PO DAILY 12/20/16 [History Confirmed 07/20/20 Last Taken 07/20/20] sildenafil 25 mg PO PRN PRN 12/20/16 [History Confirmed 07/20/20 Last Taken Unknown] tamsulosin 0.4 mg PO HS 12/20/16 [History Confirmed 07/20/20 Last Taken 07/20/20] cyclobenzaprine 10 mg tablet See Rx Instructions PO .COMPLEX PRN #30 tab 12/25/19 [Rx Confirmed 07/20/20 Last Taken 07/19/20] Adult One Daily Multivitamin 1 tab PO DAILY 07/20/20 [History Confirmed 07/20/20 Last Taken 07/20/20] apple cider vinegar 1 tab PO DAILY 07/20/20 [History Confirmed 07/20/20 Last Taken Unknown] aspirin 81 mg CHEWED DAILY #30 tab 07/22/20 [Rx Last Taken Unknown] atorvastatin 80 mg PO HS #30 tab 07/22/20 [Rx Last Taken Unknown] clopidogrel 75 mg PO DAILY #30 tab 07/22/20 [Rx Last Taken Unknown] docusate sodium [DOK] 100 mg PO BID #30 cap 07/22/20 [Rx Last Taken Unknown] COURSE Hospital Course Hospital course: . Discharge diagnosis: Ischemic right pontine CVA Time Spent with Patient Time attestation: Total time spent providing and/or coordinating discharge services: EXAM Constitutional Vitals: Temp Pulse Resp BP Pulse Ox 97.5 F 89 20 176/120 98 07/22/20 12:02 07/22/20 12:02 07/22/20 12:02 07/22/20 12:02 07/22/20 12:02 Discharge Plan Patient/Caregiver Discharge Instructions Activity: increase activity as tolerated Diet: Regular Diet Instructions: Transient Ischemic Attack (GEN), Ischemic Stroke (DC) Activity Restrictions/Additional Instructions: Continue aspirin 81 mg/Plavix 75 daily Lipitor 40 mg daily Follow-up neurology in 1 week Return to ER if worsening unilateral weakness fever chills headache This discharge packet is provided to you to help keep you informed about your care. We want to ensure you get everything you need when you go home. You will also be receiving a call from us in a few days to follow up with you and see how you are doing since your discharge. This gives us a chance to listen to any concerns you maybe experiencing since you were discharged or any additional needs you may have, as well as providing us feedback on your care experience. We strive to always provide excellent care and thank you for your feedback and for choosing [facility]. Prescriptions: New atorvastatin 40 mg Tablet 80 mg PO HS Qty: 30 RF: 0 clopidogrel 75 mg Tablet 75 mg PO DAILY Qty: 30 RF: 0 docusate sodium [DOK] 100 mg Capsule 100 mg PO BID Qty: 30 RF: 0 aspirin 81 mg Tablet,Chewable 81 mg CHEWED DAILY Qty: 30 RF: 0 Continued cyclobenzaprine 10 mg tablet See Rx Instructions PO .COMPLEX PRN (Reason: muscle spasm) Qty: 30 RF: 0 losartan 50 MG tablet 100 mg PO DAILY RF: 0 sildenafil 25 MG tablet 25 mg PO PRN PRN (Reason: E.D.) RF: 0 tamsulosin 0.4 MG capsule 0.4 mg PO HS RF: 0 amlodipine 10 MG tablet 10 mg PO DAILY RF: 0 betamethasone dipropionate 15 GM cream 1 applic TOPICAL PRN PRN (Reason: Rash) RF: 0 Adult One Daily Multivitamin 1 tab PO DAILY RF: 0 apple cider vinegar 1 tab PO DAILY RF: 0 Discontinued simvastatin 20 MG tablet 20 mg PO HS RF: 0 aspirin 325 mg tablet 325 mg PO QDAY Qty: 30 RF: 0 Follow Up Plan Follow up with: David Ruiz MD [Primary Care Provider] - 08/01/20 3:00 pm (Please arrive 15 minutes early) Patient Disposition: Home, Self-Care Prognosis: Fair Rehab Potential: Fair I certify that the patient requires SNF services: No Overall status at discharge: patient is progressing back to baseline Discharge Orders: Discharge Order (Routine); Ordered 07/22/20 Ordered By: Richard ENAMORADO VTE Deep Vein Thrombosis/Pulmonary Embolism Present on Admission: No
[2020-07-23] MEDS ORDERED: MULTIVIT,THER IRON,CA,FA & MIN 1 TABLET PO SCH (09:00)
[2020-07-23] MEDS ORDERED: amLODIPine 10 MG TABLET PO SCH (09:00)
[2020-07-23] MEDS ORDERED: LOSARTAN 50 MG TABLET PO SCH (09:00)
== END 2020-07-22 18:00 | disposition home or self-care (01) | DRG 65 ==
LOC: ED 16:59 → ICU 18:48
PROVIDERS: ADMIT Internal Medicine; ATTEND Internal Medicine